=== PATIENT | male | born 1945 | race Caucasian/White ===

== ENCOUNTER 2020-02-02 12:55 | Emergency (ER) | payer MEDICARE, OTHER ==
[2020-02-02 14:00] VITALS: BP 120/57
--- NOTE | 2020-02-02 14:58 | UC ---
Complaint Male HPI - HPI Summary HPI Summary: Pt presents with c/o sudden onset of dark colored urine. Pt states he has low pelvic ache X 1 day. Pt denies urinary symptoms or frequency, urgency or dysuria. Pt gave a urine sample today and reports that he had small to moderate "blood clot" after he urinated - History of Current Complaint Chief Complaint: UCGU Stated Complaint: URINARY COMPLAINT Time Seen by Provider: 02/02/20 13:30 Hx Obtained From: Patient Onset/Duration: Sudden Onset, Still Present Severity Initially: Moderate Severity Currently: Moderate Pain Intensity: 0 Location: Suprapubic Aggravating Factor(s): Voiding Alleviating Factor(s): Nothing Associated Signs And Symptoms: Positive: Hematuria - Risk Factors Testicular Torsion: Negative - Allergies/Home Medications Allergies/Adverse Reactions: Allergies Allergy/AdvReac Type Severity Reaction Status Date / Time No Known Allergies Allergy Verified 02/02/20 13:40 Home Medications: Home Medications Aspirin [Aspir 81] 81 mg PO DAILY 07/30/13 [History Confirmed 02/02/20] Atenolol 25 mg PO DAILY 07/30/13 [History Confirmed 02/02/20] Clopidogrel Bisulfate [Plavix] 75 mg PO DAILY 07/30/13 [History Confirmed ] Atorvastatin* [Lipitor 20 MG*] 20 mg PO DAILY 02/02/20 [History Confirmed ] Ibuprofen TAB* [Advil TAB*] 200 mg PO Q6H PRN 02/02/20 [History Confirmed ] Multivitamin [Multivitamins] 1 cap PO DAILY 02/02/20 [History Confirmed 02/02/20 ] Nitrofurantoin Monohyd/M-Cryst [Macrobid 100 mg Capsule] 100 mg PO Q12H #6 cap 02/02/20 [Rx] [place]-3 Fatty Acids/Fish Oil [Fish Oil 1,000 mg Softgel] 1 each PO DAILY [History Confirmed 02/02/20] Omeprazole 20 mg PO DAILY 02/02/20 [History Confirmed 02/02/20] Ubidecarenone/Vitamin E [Co Q-10 50 mg Softgel] 1 each PO DAILY 02/02/20 [ History Confirmed 02/02/20] Vitamin E Acetate [Vitamin E] 1,000 unit PO DAILY 02/02/20 [History Confirmed ] PMH/Surg Hx/FS Hx/Imm Hx Previously Healthy: Yes Endocrine History: Dyslipidemia Cardiovascular History: Cardiac Disease, Hypertension - Surgical History Surgical History: Yes Surgery Procedure, Year, and Place: CABG x2 and stents. appy - Family History Known Family History: Positive: Cardiac Disease - Social History Occupation: Retired Lives: With Family Alcohol Use: Rare Substance Use Type: None Smoking Status (MU): Former Smoker Type: Cigarettes, eCigarettes Have You Smoked in the Last Year: Yes Household Exposure Type: Cigarettes Review of Systems All Other Systems Reviewed And Are Negative: Yes Constitutional: Positive: Negative Skin: Positive: Negative Eyes: Positive: Negative ENT: Positive: Negative Respiratory: Positive: Negative Cardiovascular: Positive: Negative Gastrointestinal: Positive: Other - pelvic pressure Genitourinary: Positive: Hematuria Motor: Positive: Negative Neurovascular: Positive: Negative Musculoskeletal: Positive: Negative Neurological/Mental Status: Positive: Negative Psychological: Positive: Negative Is Patient Immunocompromised?: No Physical Exam Triage Information Reviewed: Yes Appearance: Well-Appearing Vital Signs: Initial Vital Signs Temp 98.5 F 02/02/20 13:46 Pulse 77 02/02/20 13:46 Resp 16 02/02/20 13:46 BP 120/57 02/02/20 13:46 Pulse Ox 96 02/02/20 13:46 Vital Signs Reviewed: Yes Eye Exam: Normal ENT Exam: Normal Dental Exam: Normal Neck exam: Normal Respiratory Exam: Normal Respiratory: Positive: Normal breath sounds, No respiratory distress Cardiovascular Exam: Normal Musculoskeletal Exam: Normal Neurological Exam: Normal Psychological Exam: Normal Skin Exam: Normal Diagnostics - Radiology No standard instances Radiology Interpretation Completed By: Radiologist - Publishing Manager: Dilshad Hanks C ([id number]) New Car Get Ready Mechanic: SANDRA (SANDRA) Report Date: 15:07:00 Report Status: Final Start of Report Content = Patient Name: HILDA MACK Medical Record#: [id number] Ordering Physician: Yanira Ervin NP Acct.#: [id number] : 1945 Age: 74 Sex: M Location: [facility] Exam Date: 02/02/20 141 ADM Status: [facility] ER Order Information: CT ABD/PEL W/O Accession Number: [id number] CPT: 52554 INDICATION: Hematuria. COMPARISON: No relevant prior exams available on the [facility] PACS for comparison. TECHNIQUE: Multidetector CT images were obtained from the lung apices to the ischial tuberosities without IV contrast limiting assessment of the viscera. No oral contrast administered limiting assessment of the gastrointestinal tract. Multiplanar reformation. REPORT: VISUALIZED INFERIOR THORAX: Emphysema noted at the lung bases. Median sternotomy wires and mediastinal vascular clips. LIVER: 14.9 cm cephalocaudal. Normal parenchymal density. Normal surface contour. No conspicuous focal liver lesions. BILIARY TRACT: Suggestion of a small dependent gallstone without additional CT abnormality of the gallbladder. Negative for biliary dilatation. PANCREAS: Unremarkable pancreas within limits of noncontrast CT. SPLEEN: Negative for splenomegaly. No conspicuous focal splenic lesions. GASTROINTESTINAL TRACT: Unremarkable upper gastrointestinal tract and small bowel. While the appendix is not discretely visualized, there is no inflammatory change in the right lower quadrant or region of the tip of the cecum to suggest presence of an acute inflammatory process. Sever colonic diverticulosis predominately at the sigmoid segment without acute inflammatory change. Negative for ascites or free air. Small fat-containing LEFT inguinal hernia without inflammatory change. Small fat-containing RIGHT inguinal hernia without inflammatory change. The RIGHT anterior inferior margin of the urinary bladder projects to the neck of the inguinal hernia. MESENTERIC: Unremarkable. ADRENAL / GENITOURINARY: Normal adrenal glands. Mild LEFT hydroureteronephrosis. No obstructing renal stones visualized. The hydronephrosis may be secondary to a stone recently passed to the urinary bladder with a 0.4 cm dependent stone at the urinary bladder. Renal vascular calcifications noted. Unremarkable prostate and seminal vesicles. RETROPERITONEAL: Normal size limits 0.8 cm short axis infrarenal aortocaval lymph node noted. Negative for lymphadenopathy by short axis size criteria. VASCULAR: Atheromatous abdominal aorta and iliac arteries. Negative for aneurysm. Physiologic distention of the IVC. SOFT TISSUES: Asymmetric atrophy of the visualized RIGHT quadriceps and hip adductor musculature. BONES: Negative for suspicious osseous lesions. IMPRESSION: #. Mild LEFT hydroureteronephrosis. No obstructing renal stones visualized. The hydronephrosis may be secondary to a stone recently passed to the urinary bladder with a 0.4 cm dependent stone at the urinary bladder. #. The RIGHT anterior inferior margin of the urinary bladder projects to the neck of the small fat-containing RIGHT inguinal hernia without inflammatory change. #. Severe colonic diverticulosis without acute inflammatory change. <Electronically signed by Dilshad Hanks MD in [place]> 02/02/20 1502 Dictated By: Dilshad Hanks MD Dictated Date /Time: 02/02/20 145 Transcribed Date/Time: 02/02/201451 Copy to: CC:Meredith Gomez DO; Yanira Ervin EXPERT WITNESS; Trey Rodarte MD Imaging - [facility] - [place] [facility] [address] [place] [address] ph ([phone]) ph ([phone]) ph ([phone]) End of Report Content Complaint Male Course/Dx - Differential Dx/Diagnosis Differential Diagnosis/HQI/PQRI: Urinary Tract Infection Provider Diagnosis: Hematuria, Kidney stone Discharge ED - Sign-Out/Discharge Documenting (check all that apply): Patient Departure All imaging exams completed and their final reports reviewed: Yes - Discharge Plan Condition: Stable Disposition: HOME Prescriptions: Nitrofurantoin Monohyd/M-Cryst [Macrobid 100 mg Capsule] 100 mg PO Q12H #6 cap Patient Education Materials: Kidney Stones (ED), Hematuria (ED) Referrals: Trey Rodarte MD [Primary Care Provider] - As Soon As Possible - Billing Disposition and Condition Condition: STABLE Disposition: Home
== END 2020-02-02 15:23 | disposition home or self-care (01) ==
LOC: UCCORT 12:55
DX: N13.30 Unspecified hydronephrosis (principal); N20.0 Calculus of kidney; K57.30 Diverticulosis of large intestine without perforation or abscess without bleeding; R31.9 Hematuria, unspecified; E78.5 Hyperlipidemia, unspecified; I10 Essential (primary) hypertension; Z79.82 Long term (current) use of aspirin; Z79.899 Other long term (current) drug therapy; Z95.1 Presence of aortocoronary bypass graft; Z95.5 Presence of coronary angioplasty implant and graft; Z87.891 Personal history of nicotine dependence
CPT/HCPCS: 74176; 81003; 87086; 99202; G0463